=== PATIENT | male | born 1965 | race African-American/Black ===

== ENCOUNTER 2022-10-14 22:13 | Emergency (ER) | payer OTHER ==
[2022-10-14 22:19] VITALS: BP 154/91; PULSE 75; RESP 18; TEMP 98.2; BMI 31.1
[2022-10-14] MEDS ORDERED: ACETAMINOPHEN 1000 MG/100 ML BAG IVPB ONE (23:04)
[2022-10-14] MEDS ORDERED: SODIUM CHLORIDE 0.9% 500 ML INFUS.BAG IV ONE (23:04)
[2022-10-14] MEDS ORDERED: ACETAMINOPHEN INJECTION 100 ML IVPB ONE (23:19)
[2022-10-15 00:48] LABS: BASO % 0.8 % (0-2.0); EOS % 4.2 % (0-4.5); HEMATOCRIT 40.6 % (35.4-49); HEMOGLOBIN 14.2 GM/dL (11.7-16.9); LYMPH % 41.3 % (8-40); MCH 29.2 pg (25.7-33.7); MCHC 34.9 g/dl (32.0-35.9); MEAN CELL VOLUME 83.6 fl (80-96); MEAN PLT VOLUME 8.8 fl (7.5-11.1); MONO % 13.4 % (3.8-10.2); NEUT % 40.3 % (42.8-82.8); PLATELET COUNT 221 10^3/uL (134-434); RBC 4.86 M/mm3 (4.00-5.60); RDW 13.7 % (11.9-15.9); WHITE BLOOD COUNT 4.7 K/mm3 (4.0-10.0)
[2022-10-15 01:10] LABS: CALCIUM 9.2 mg/dL (8.5-10.1)
[2022-10-15 01:11] LABS: ALBUMIN 3.4 g/dl (3.4-5.0); BLOOD UREA NITROGEN 23.7 mg/dL (7-18)
[2022-10-15 01:14] LABS: CREATININE 1.5 mg/dL (0.55-1.3)
[2022-10-15 01:16] LABS: BILIRUBIN,TOTAL 0.3 mg/dL (0.2-1); TOT PROT 7.3 g/dl (6.4-8.2)
[2022-10-15] MEDS ORDERED: POTASSIUM CHLORIDE ORAL LIQUID 20 MEQ/15 ML PO ONE (01:25)
[2022-10-15] MEDS ORDERED: MAGNESIUM SULF 50% (8.12 MEQ/2 ML-1 GM VIAL) IVPB ONE (01:26)
[2022-10-15] MEDS: KCL 10 MEQ IVPB 10 MEQ/100 ML INFUS.BAG IVPB SCH ×3 (01:30→03:34)
[2022-10-15] MEDS ORDERED: SODIUM CHLORIDE 1,000 ML IV STA (01:32)
[2022-10-15] MEDS ORDERED: MAGNESIUM SULFATE IN WATER 2 GM/50 ML IVPB IVPB ONE (01:40)
[2022-10-15] MEDS ORDERED: POTASSIUM CHLORIDE ORAL LIQUID 20 MEQ/15 ML ONE (01:40)
[2022-10-15 04:19] LABS: CALCIUM 8.7 mg/dL (8.5-10.1)
[2022-10-15 04:20] LABS: BLOOD UREA NITROGEN 22.4 mg/dL (7-18)
[2022-10-15 04:24] LABS: CREATININE 1.3 mg/dL (0.55-1.3)
== END 2022-10-15 05:20 | disposition home or self-care (01) ==
LOC: JER 22:13
PROC: 3E033NZ Introduction of Analgesics, Hypnotics, Sedatives into Peripheral Vein, Percutaneous Approach (ICD-10-PCS; principal; 2022-10-14)
PROC: 3E0337Z Introduction of Electrolytic and Water Balance Substance into Peripheral Vein, Percutaneous Approach (ICD-10-PCS; 2022-10-14)
PROC: 3E033GC Introduction of Other Therapeutic Substance into Peripheral Vein, Percutaneous Approach (ICD-10-PCS; 2022-10-15)
DX: E87.6 Hypokalemia (principal); R07.9 Chest pain, unspecified; R51.9 Headache, unspecified
CPT/HCPCS: 36415; 80048; 80053; 84484; 85025; 93005; 93010; 99284-25

== ENCOUNTER 2023-05-14 14:50 | Emergency (ER) | payer OTHER ==
[2023-05-14 14:53] VITALS: RESP 18; BMI 28.6
[2023-05-14] MEDS ORDERED: ACETAMINOPHEN 1000 MG/100 ML BAG IVPB ONE (15:39)
[2023-05-14] MEDS ORDERED: ACETAMINOPHEN INJECTION 100 ML IVPB ONE (16:07)
[2023-05-14 16:12] LABS: BASO % 0.5 % (0-2.0); EOS % 1.4 % (0-4.5); HEMATOCRIT 42.8 % (35.4-49); HEMOGLOBIN 14.6 GM/dL (11.7-16.9); MCH 28.8 pg (25.7-33.7); MEAN CELL VOLUME 84.8 fl (80-96); MEAN PLT VOLUME 8.7 fl (7.5-11.1); MONO % 12.9 % (3.8-10.2); NEUT % 50.2 % (42.8-82.8); PLATELET COUNT 246 10^3/uL (134-434); RBC 5.05 M/mm3 (4.00-5.60); RDW 14.1 % (11.9-15.9); WHITE BLOOD COUNT 3.3 K/mm3 (4.0-10.0)
[2023-05-14 16:26] LABS: INR 1.15 (0.83-1.09); PROTHROMBIN TIME (PATIENT) 13.3 SEC (9.7-13.0)
[2023-05-14 16:29] LABS: ACTIVATED PTT 34.4 SECONDS (25.2-36.5)
[2023-05-14 16:38] LABS: POTASSIUM 4.1 mmol/L (3.5-5.1)
[2023-05-14 16:40] LABS: CALCIUM 9.1 mg/dL (8.5-10.1)
[2023-05-14 16:41] LABS: ALBUMIN 3.6 g/dl (3.4-5.0)
[2023-05-14 16:44] LABS: CREATININE 1.2 mg/dL (0.55-1.3)
[2023-05-14 16:46] LABS: BILIRUBIN,TOTAL 0.5 mg/dL (0.2-1); TOT PROT 7.7 g/dl (6.4-8.2)
[2023-05-14 16:53] LABS: N-TERMINAL BNP 26.7 pg/ml (5-125)
[2023-05-14] MEDS ORDERED: ASPIRIN 81 MG CHEWABLE TABLETS PO ONE (16:53)
[2023-05-14] MEDS ORDERED: ASPIRIN 81 MG CHEWABLE TABLETS ONE (16:54)
[2023-05-14 19:05] VITALS: BP 131/75; PULSE 64; TEMP 98.2
== END 2023-05-14 20:15 | disposition left against medical advice (07) ==
LOC: JER 14:50
PROC: 3E033NZ Introduction of Analgesics, Hypnotics, Sedatives into Peripheral Vein, Percutaneous Approach (ICD-10-PCS; principal; 2023-05-14)
DX: R07.9 Chest pain, unspecified (principal); R51.9 Headache, unspecified; G47.9 Sleep disorder, unspecified; R06.09 Other forms of dyspnea; R06.01 Orthopnea; Z20.822 Contact with and (suspected) exposure to COVID-19
CPT/HCPCS: 0241U-QW; 36415; 70450-TC; 71046-TC-FY; 80053; 83690; 83735; 83880; 84484; 85025; 85610; 85730; 93005; 93010; 99285-25